=== PATIENT | male | born 1995 ===

== ENCOUNTER 2020-10-04 15:53 | Outpatient (CLI) | payer OTHER ==
[~2020-10-04 15:53] MED LIST: EPINEPHrine 1 MG/ML AMP ONE; Gadobenate Dimeglumine 529 MG/1 ML (20ML VIAL) ONE; Iopamidol 300 61% 50 ML VIAL FS ONE; Lidocaine 1% PF 10 ML AMP ONE; Magnevist 469MG/ML 20 ML VIAL ONE
== END 2020-10-04 15:54 | disposition home or self-care (01) ==
LOC: RAD 15:53
PROVIDERS: ATTEND Orthopaedic Surgery
DX: M75.42 Impingement syndrome of left shoulder (principal); S43.432A Superior glenoid labrum lesion of left shoulder, initial encounter
CPT/HCPCS: 23350; A9577; A9579; J0171; J2001; Q9967